=== PATIENT | female | born 1935 | race Caucasian/White ===

== ENCOUNTER → 2023-12-27 09:19 | Outpatient (REF) | payer OTHER, SELFPAY ==
--- NOTE | 2023-12-23 14:06 | WATCHMAN ---
Documented by User: SEAN Patrick 12/23/23 14:18
Watchman
Wathcman Procedure
Referred by:: Dereck/Keyona
Date of Referral:: 12/17/23
[id number] Score
Age in Years (65=0, 65-74=1, >/=75=2): > or = 75
Sex (Female=+1): Female
Congestive Heart Failure History (Yes=+1): Yes
Hypertension History (Yes=+1): Yes
Stroke/TIA/Thromboembolism History (Yes=+2): No
Vascular Disease History (Yes=+1): No
Diabetes Mellitus (Yes=+1): No
Score: 5
Anticoagulation Recommendations: Recommend anticoagulation (as validated in nonvalvular fib)
HASBLED Score
Hypertenstion (uncontrolled >160mmHG systolic): Yes
Renal disease (dialysis, transplant, Cr >2.26mg/dL or >200umol/L): No
Liver disease (cirrhosis or bilirubin >2x normal w/ AST/ALT/AP >3x normal: No
Stroke history: No
Prior major bleeding or predisposition to bleeding: Yes
Labile INR(unsable/high INRs,time in therapeutic range <60%): No
Age >65: Yes
Medication usage predisposing to bleeding(ASA, NSAIDS): No
Alcohol use (>/= 8 drinks/week): No
Score: 3
Risk: Alternatives to anticoagulation should be considered: Patient is at high risk for major bleeding
Electrocardiogram
Interpretation: abnormal
Heart Rate: 55
Rate: bradycardiac
Rhythm: sinus
Physician Visits
Quality Control Technician:: Keyona
Date of Visit:: 12/17/23
Primary [employer] Crm Developer:: Tomi Harden
Date of Visit:: 11/25/23
PCP:: Dino Garcia
Oral Anticoagulation
Post procedure anticoagulation plan:: In her particular case given her recurrent GI bleeding we would plan for half dose Eliquis plus aspirin 81 mg for 3 to 6 months at which point once we have assessed post procedure transesophageal echocardiogram
if there is no device related thrombus and no significant leak we can discontinue direct oral anticoagulation and continue with aspirin 81 mg daily.
Plan
Plan:: 12/17/2023: Patient seen by Dr. Rand today for watchman evaluation. Needs repeat BMP with GFR prior to scheduling imaging for watchman (CT vs AMANDA) . Script for BMP eTransmitted to [facility]. Will call and notify patient.
Called and spoke to patient's daughter. Informed prescription for BMP sent electronically to lab [facility] and patient should have two vials of blood drawn. Informed I will follow up once I have results to schedule next step. Contacted information texted
to daughter's cell phone. Allowed for and answered questions.
12/23/2023: Received results of BMP. Reviewed them with the patient's daughter. Creat 1.18, GFR 45. Scheduled CT watchman for 12/27/2023 at 0930 at [facility]. Reviewed NPO for 3 hours prior and to bring a complete list of medications to
visit. Sent request for pre-authorization to Dr. Rand's office. BMP results faxed to CT scan department.

Documented by User: SEAN Stacy 12/31/23 07:24
Watchman
[id number] Score
Score: 5
Anticoagulation Recommendations: Recommend anticoagulation (as validated in nonvalvular fib)
HASBLED Score
Score: 3
Risk: Alternatives to anticoagulation should be considered: Patient is at high risk for major bleeding
Plan
Plan:: 12/17/2023: Patient seen by Dr. Rand today for watchman evaluation. Needs repeat BMP with GFR prior to scheduling imaging for watchman (CT vs AMANDA) . Script for BMP eTransmitted to [facility]. Will call and notify patient.
Called and spoke to patient's daughter. Informed prescription for BMP sent electronically to [facility] and patient should have two vials of blood drawn. Informed I will follow up once I have results to schedule next step. Contacted information texted
to daughter's cell phone. Allowed for and answered questions.
12/23/2023: Received results of BMP. Reviewed them with the patient's daughter. Creat 1.18, GFR 45. Scheduled CT watchman for 12/27/2023 at 0930 at [facility]. Reviewed NPO for 3 hours prior and to bring a complete list of medications to
visit. Sent request for pre-authorization to Dr. Radn's office. BMP results faxed to CT scan department.
12/31/2023: Reviewed patient with the heart team in the SDM meeting. The team is agreeable to proceed with Watchman utilizing a 31mm device. Will confirm with intraop imaging.
== END ==
LOC: RAD 09:19
PROVIDERS: ATTENDING PHYSICIAN Internal Medicine Cardiovascular Disease; FAMILY PHYSICIAN Internal Medicine
DX: I48.0 Paroxysmal atrial fibrillation (principal)
CPT/HCPCS: 75572; Q9967

== ENCOUNTER → 2024-02-27 07:03 | Day surgery (SDC) | payer OTHER, SELFPAY | END | disposition home or self-care (01) | LOC: CATH 07:03 | PROVIDERS: ATTENDING PHYSICIAN Internal Medicine Cardiovascular Disease; FAMILY PHYSICIAN Internal Medicine; OTHER PHYSICIAN Internal Medicine Cardiovascular Disease | DX: I48.0 Paroxysmal atrial fibrillation (principal); I08.1 Rheumatic disorders of both mitral and tricuspid valves; I08.8 Other rheumatic multiple valve diseases; I70.0 Atherosclerosis of aorta; I10 Essential (primary) hypertension; R60.9 Edema, unspecified; Z79.899 Other long term (current) drug therapy | CPT/HCPCS: 93312; 93320; 93325 ==

== ENCOUNTER 2024-03-03 08:15 | Inpatient (IN) | payer OTHER, SELFPAY ==
[2024-02-17 11:51] VITALS: BMI 28.4
[2024-02-17 12:32] LABS: % Basophils 0.7 % (0-2); % Eosinophils 2.1 % (0-6); % Immature Granulocytes 0.2 % (0-0.5); % Monocytes 5.8 % (1.7-9.3); % Neutrophils 68.2 % (42.2-75.2); Absolute Eosinophils 0.1 10^3/uL (0-0.7); Absolute Lymphocytes 1.3 10^3/uL (1.2-3.4); Absolute Monocytes 0.3 10^3/uL (0.1-0.6); Hematocrit 32.2 % (37.0-47.0); Hemoglobin 10.3 g/dL (12.0-16.0); Mean Corpuscular Hgb 28.4 pg (27.0-31.0); Mean Corpuscular Volume 88.7 fL (81.0-99.0); Mean Platelet Volume 9.6 fL (7.4-10.4); Nucleated Red Blood Cells % 0 %; Platelet Count 208 10^3/uL (130-400); Red Blood Cell Count 3.63 10^6/uL (4.20-5.40); Red Cell Dist. Width 13.1 % (11.5-14.5); White Blood Cell Count 5.8 10^3/uL (4.8-10.8)
[2024-02-17 12:46] LABS: ALT (SGPT) 26 U/L (0-35); AST (SGOT) 32 U/L (14-36); Alkaline Phosphatase 74 U/L (38-126); Blood Urea Nitrogen 14 mg/dl (7-17); Calcium 8.7 mg/dl (8.4-10.2); Carbon Dioxide 32 mmol/L (22-30); Chloride 98 mmol/L (98-107); Estimated Creatinine Clearance 37 ml/min; Glucose 96 mg/dl (70-99); Potassium 3.9 mmol/L (3.5-5.1); Sodium 139 mmol/L (135-145); Total Bilirubin 0.7 mg/dl (0.2-1.3); Total Protein 6.5 g/dl (6.3-8.2); eGFR 48.94
[2024-02-17 12:52] LABS: INR 1.22; PT 15.3 Sec (11.4-14.6)
[2024-03-03] VITALS (14 sets, daily range): BP systolic 132–187; BP diastolic 46–66; BMI 28.3
--- NOTE | 2024-03-03 09:37 | WATCHMAN.MD ---
Watchman Implant
-
WATCHMAN LEFT ATRIAL APPENDAGE CLOSURE DEVICE REPORT
Date: 03/03/24
Referring Product Builder: Dr Tomi Harden
Primary Care Provider: Dino Garcia
History:
She has a complex medical history which includes, symptomatic atrial fibrillation, heart failure with preserved ejection fraction, prior PVI December 30, 2020 with recurrent bouts of symptomatic atrial fibrillation. Now on amiodarone. She has Crohn's
disease and previously underwent partial colectomy. She has experienced recurrent lower GI bleeding necessitating interruption of oral anticoagulation.
Watchman Team:
AMANDA: Dr Cortes Massey M.D.
Transseptal recoating machine operator: Dr Connor Jones M.D.
Implanter: Dr Carson Rand M.D.
Procedure: Watchman left atrial appendage closure.
The patient was placed under general anesthesia by anesthesia.
A AMANDA probe was placed.
9 Fr sheath was placed in the right femoral vein for ICE.
16 Fr sheath was placed via the right femoral vein to allow access for the watchman sheath
MAG type: [place]
Heparin was administered to goal ACT 350-400 seconds. Fluid bolus was given.
Intracardiac ultrasound catheter was placed in the right atrium identifying the intraatrial septum for transseptal puncture.
Transseptal puncture was performed By Dr Jones. This entailed advancing a sheath with dilator into the superior vena cava and withdrawing both (monitoring intracardiac ultrasound, fluoroscopy and tip pressure) with the tip oriented toward the
atrial septum. The fossa ovalis was engaged (indicated by sudden displacement of the sheath tip as well as tenting of the fossa seen on intracardiac ultrasound). An Agilis sheath with Brockenbrough needle were utilized to accomplish transseptal
puncture.. Left atrial catheter position was confirmed by echocardiographic imaging, pressure monitoring and fluoroscopy. The sheath was advanced over the dilator and positioned in the left atrium.
Dr Carson Rand positioned and deployed the Watchman device.
The 14 [place] watchman access system sheath double curve was substituted for the transeptal sheath. A 5 [place] curved pigtail was then substituted for the guidewire through the watchman sheath to the ostium of the left atrial appendage. The 5
[place] pigtail was advanced into the left atrial appendage and angiography was performed. This allowed additional measurements assessing left atrial appendage ostium size and MAG morphology.
The pigtail catheter was removed from the access sheath. A 31 mm Watchman device was flushed and then placed into the watchman access sheath and advanced through the sheath. The Watchman was clamped into the sheath. The device was deployed into
the left atrial appendage.
The PASS criteria were met. The stability tug test was performed and passed. Angiography and transesophageal echocardiogram revealed no leaks nor jets. The position was confirmed on angiography and transesophageal echo and there were no
significant shoulders. Compression ranges from 15% to 25 %.
After meeting the PASS release criteria the device was released into the left atrial appendage.
The watchman access sheath was then removed through the transseptal into the IVC. A figure 8 suture closure was performed at the site of the femoral venous puncture and the sheath as it was removed.
Impression:
Transeptal puncture by Dr Jones.
SUCCESSFUL DEPLOYMENT OF 24 mm WATCHMAN LEFT ATRIAL APPENDAGE CLOSURE DEVICE by Dr Rand.
Recommended anticoagulation strategy for this specific patient is:
In her particular case given her recurrent GI bleeding we would plan for half dose Eliquis plus aspirin 81 mg , check AMANDA at 3 mo and if there is no device related thrombus and no significant leak we continue direct oral anticoagulation and aspirin
81 mg daily to complete 6 months from implant.
At post procedure AMANDA, leaks > 5mm are significant and require chronic full anticoagulation or consideration for leak closure. Yasmeen-device leaks between 3 and 5 mm may also carry an increased risk. These patients will need individualized risk
assessment and discussion with Watchman team. Leaks < 3 mm are generally considered non-significant. With leak of any size suggestion is to check AMANDA 12 mo out from implant.
We will schedule transesophageal echo for 3 months from now.
Continue cardiovascular care with Dr. Harden.
cc: Dr Tomi Harden
[2024-03-03 10:31] LABS: ACT-LR - POC 319 Seconds (116-155)
[2024-03-03 10:49] LABS: ACT-LR - POC 327 Seconds (116-155)
--- NOTE | 2024-03-03 15:38 | W.PN.UPDATE ---
Update Note
Progress Note Update
88 yo WF s/p Watchman device implant (same day). She feels good, no cp, sob, raffy diet, voiding, R fem site c/d/i no HT, she had small ooze after going to [facility], manual pressure held and redressed, now soft. EKG SB 1deg AVB. She will take her Eliquis
2.5 at 8pm at home. We will add ASA 81mg daily. Activity restrictions reviewed. She will f/u Dr. Harden in 1 mo. She will have f/u AMANDA in 3 mo. She is for d/c home after 4:15pm if groin remains stable.
Impression:
Transeptal puncture by Dr Jones.
SUCCESSFUL DEPLOYMENT OF 24 mm WATCHMAN LEFT ATRIAL APPENDAGE CLOSURE DEVICE by Dr Rand.
Recommended anticoagulation strategy for this specific patient is:
In her particular case given her recurrent GI bleeding we would plan for half dose Eliquis plus aspirin 81 mg , check AMANDA at 3 mo and if there is no device related thrombus and no significant leak we continue direct oral anticoagulation and aspirin
81 mg daily to complete 6 months from implant.
At post procedure AMANDA, leaks > 5mm are significant and require chronic full anticoagulation or consideration for leak closure. Yasmeen-device leaks between 3 and 5 mm may also carry an increased risk. These patients will need individualized risk
assessment and discussion with Watchman team. Leaks < 3 mm are generally considered non-significant. With leak of any size suggestion is to check AMANDA 12 mo out from implant.
We will schedule transesophageal echo for 3 months from now.
Continue cardiovascular care with Dr. Harden.
--- NOTE | 2024-03-03 15:53 | W.DS.TRANS ---
DC Summary - Collarette Separator
-
Discharge Instructions:
Discharge Diagnosis/Procedures Afib post Watchman device implant
Diet Low Cholesterol
Driving Restrictions No driving for 24 hours
Others Tests 3 month Follow Up AMANDA is scheduled at [facility] on 06/09/2024. You will receive a call
to set up pre-admission testing and instructions
.
Instructions: Atrial fibrillation
Heart Healthy Diet
Aspirin
Left Atrial Appendage Closure
Stand-Alone Forms: DC Instructions- Cath/EP Lab
Changes to Home Medications: Yes
Discharge Medications:
DC Medications w/original date entered in [facility]
atorvastatin 20 mg tablet 20 mg PO HS 12/27/20
duloxetine 30 mg capsule,delayed release 30 mg PO DAILY 12/27/20
furosemide 40 mg tablet 40 mg PO DAILY 12/27/20
pantoprazole 40 mg tablet,delayed release 40 mg PO BID 12/27/20
ustekinumab 90 mg/mL subcutaneous syringe (Stelara) 90 mg SQ MONTHLY 12/27/20
amiodarone 200 mg tablet 200 mg PO DAILY 02/12/24
apixaban 5 mg tablet (Eliquis) 2.5 mg PO BID 02/12/24
cholecalciferol (vitamin D3) 50 mcg (2,000 unit) tablet (Vitamin D3) 50 mcg PO DAILY 02/12/24
cholestyramine (with sugar) 4 gram oral powder (Questran) 4 g PO BID 02/27/24
empagliflozin 10 mg tablet (Jardiance) 10 mg PO DAILY 02/27/24
hydralazine 25 mg tablet 25 mg PO BID 02/27/24
amiodarone 200 mg tablet 200 mg PO Q48H 03/03/24
aspirin 81 mg chewable tablet 81 mg PO DAILY #1 tab 03/03/24
clonidine 0.2 mg/24 hr weekly transdermal patch 1 patch transdermal FR@0900 03/03/24
cyclosporine 0.05 % eye drops in a dropperette (Restasis) 1 drp ophthalmic (eye) Q12H 03/03/24
labetalol 100 mg tablet 50 mg PO BID 03/03/24
Home Medication Changes
new to asa 81
Pending Results: No
== END 2024-03-03 16:30 | disposition home or self-care (01) | DRG 274 ==
LOC: CATH-IN 08:15
PROVIDERS: Nuclear Medicine Nuclear Cardiology; ADMITTING PHYSICIAN Internal Medicine Cardiovascular Disease; FAMILY PHYSICIAN Internal Medicine
PROC: B24BZZ4 Ultrasonography of Heart with Aorta, Transesophageal (ICD-10-PCS; 2024-03-03)
PROC: 02L73DK Occlusion of Left Atrial Appendage with Intraluminal Device, Percutaneous Approach (ICD-10-PCS; 2024-03-03)
DX: I48.19 Other persistent atrial fibrillation (principal); I50.32 Chronic diastolic (congestive) heart failure; K50.911 Crohn's disease, unspecified, with rectal bleeding; I13.0 Hypertensive heart and chronic kidney disease with heart failure and stage 1 through stage 4 chronic kidney disease, or unspecified chronic kidney disease; K21.9 Gastro-esophageal reflux disease without esophagitis; F41.9 Anxiety disorder, unspecified; F32.A Depression, unspecified; E78.5 Hyperlipidemia, unspecified; I25.10 Atherosclerotic heart disease of native coronary artery without angina pectoris; N18.30 Chronic kidney disease, stage 3 unspecified; I08.1 Rheumatic disorders of both mitral and tricuspid valves; D50.0 Iron deficiency anemia secondary to blood loss (chronic); I44.0 Atrioventricular block, first degree; R00.1 Bradycardia, unspecified; Z86.16 Personal history of COVID-19; Z87.891 Personal history of nicotine dependence; Z79.01 Long term (current) use of anticoagulants
CPT/HCPCS: 33340; 36415; 80053; 85025; 85347; 85610; 86850; 86900; 86901; 87070; 93005; 93355; C1730; C1759; C1766; C1769; C1894; Q9967

== ENCOUNTER 2024-06-09 07:26 | Day surgery (SDC) | payer OTHER, SELFPAY ==
[2024-06-09 08:15] VITALS: BMI 28.1
== END 2024-06-09 09:59 | disposition home or self-care (01) ==
LOC: CATH 07:26
PROVIDERS: ATTENDING PHYSICIAN Nuclear Medicine Nuclear Cardiology; FAMILY PHYSICIAN Internal Medicine; OTHER PHYSICIAN Internal Medicine Cardiovascular Disease
DX: Z45.09 Encounter for adjustment and management of other cardiac device (principal); I48.0 Paroxysmal atrial fibrillation; I25.10 Atherosclerotic heart disease of native coronary artery without angina pectoris; I13.0 Hypertensive heart and chronic kidney disease with heart failure and stage 1 through stage 4 chronic kidney disease, or unspecified chronic kidney disease; I50.32 Chronic diastolic (congestive) heart failure; N18.30 Chronic kidney disease, stage 3 unspecified; E78.5 Hyperlipidemia, unspecified; I08.1 Rheumatic disorders of both mitral and tricuspid valves; K21.9 Gastro-esophageal reflux disease without esophagitis; Z87.891 Personal history of nicotine dependence; Z79.01 Long term (current) use of anticoagulants; Z79.82 Long term (current) use of aspirin; Z79.84 Long term (current) use of oral hypoglycemic drugs
CPT/HCPCS: 93312; 93320; 93325